=== PATIENT | male | born 1975 | race African-American/Black ===

== ENCOUNTER 2017-04-19 19:02 | Emergency (ER) | payer OTHER ==
--- NOTE | 2017-04-19 21:45 | ED Physician Documentation ---
PD HPI ANIMAL BITE - Stated complaint Stated Complaint: DOG BITE - Chief complaint Chief Complaint: Laceration - History obtained from History obtained from: Patient - History of Present Illness Location of injury(ies): LLE Details of the event: Dog, Bite, Pet animal, Well appearing, Immunization unknown, Animal can be observed, Animal control notified Timing - onset: Today Timing - duration: Hours Timing - details: Abrupt onset, Still present Improved by: Rest, Dressing Worsened by: Moving, Palpating Contributing factors: No: Immunocompromised, Asplenic Similar symptoms before: Has not had sx before Recently seen: Not recently seen - Additional information Additional information: 41-year-old male was at his home today and there is a dog that lives next door to him the dog's funeral driver had a hold of the dog's collar and the patient himself moved out of the way so that the animal could not moved potassium and the dog bit him in the hip. He has a good sized bite to the left hip and he has done local wound care to it. The dog is a pit bull and his immunization status is questionable. The dog can be observed animal control has been notified. The patient was sent to the hospital after talking to a nurse line and the identified the patient has at risk for rabies. He is here with concern about exposure to rabies and wanting rabies vaccination. Review of Systems Constitutional: denies: Fever Nose: denies: Congestion Throat: denies: Sore throat Respiratory: denies: Cough GI: denies: Vomiting Skin: reports: Bite / sting PD PAST MEDICAL HISTORY - Past Medical History Past Medical History: Yes Derm: Eczema - Past Surgical History Past Surgical History: Yes Ortho: Other - Present Medications Home Medications: Ambulatory Orders Medication Instructions Recorded Confirmed No Known Home Medications [No 04/19/17 04/19/17 Known Home Medications] - Allergies Allergies/Adverse Reactions: Allergies Allergy/AdvReac Type Severity Reaction Status Date / Time No Known Drug Allergies Allergy Verified 04/19/17 19:08 - Social History Does the pt smoke?: No Smoking Status: Never smoker Does the pt drink ETOH?: Yes Does the pt have substance abuse?: No - Immunizations Immunizations are current?: Yes Immunizations: TDAP current <10years PD ED PE NORMAL - Vitals Vital signs reviewed: Yes - General General: Alert and oriented X 3, No acute distress, Well developed/nourished - HEENT HEENT: Atraumatic, PERRL - Respiratory Respiratory: No respiratory distress - Derm Derm: Normal color, Warm and dry, No rash - Extremities Extremities: No deformity, No edema, Other (On the left hip laterally at about the level of the illiac crest is a group of abrasion/teeth key that appear clean. ) - Neuro Neuro: No motor deficit, No sensory deficit Eye Opening: Spontaneous Motor: Obeys Commands Verbal: Oriented GCS Score: 15 - Psych Psych: Normal mood, Normal affect Results - Vitals Vitals: Vital Signs - 24 hr 04/19/17 04/19/17 19:04 21:58 Temperature 36.3 C L 36.5 C Heart Rate 73 69 Respiratory 18 17 Rate Blood Pressure 130/77 142/82 H O2 Saturation 98 98 Oxygen O2 Source Room air PD MEDICAL DECISION MAKING - ED course Complexity details: considered differential, d/w patient ED course: 41-year-old male with a dog bite to the left hip from a pit bull who can be observed and who has a questionable immunization status falls into the category of observation. I shared the information with the patient on the algorithm from the CDC and we have done local wound care. Departure - Departure Disposition: 01 Home, Self Care Clinical Impression: Dog bite of extremity Condition: Stable Instructions: ED Bite Animal General Follow-Up: STEPHANIE Luque [Provider Group] Comments: According to the CDC's algorithm because this animal can be observed for 10 days post exposure prophylaxis is not indicated today. If the animal develops symptoms over the 10 days of quarantine follow-up with your primary care doctor or here for postexposure prophylaxis. Discharge Date/Time: 04/19/17 22:02
[2017-04-19 21:59] VITALS: BP 142/82
== END 2017-04-19 22:02 | disposition home or self-care (01) ==
LOC: ED 19:02
DX: S71.052A Open bite, left hip, initial encounter (principal); W54.0XXA Bitten by dog, initial encounter; Y92.007 Garden or yard of unspecified non-institutional (private) residence as the place of occurrence of the external cause
CPT/HCPCS: 99282; 99283

== ENCOUNTER 2022-05-08 11:54 | Day surgery (SDC) | payer OTHER ==
[~2022-05-08 11:54] MED LIST: CEFAZOLIN 2G/50ML 0.9% NS 2 GM/50 ML BAG IV ONE
[2022-05-08] MEDS ORDERED: LACTATED RINGERS 1,000 ML IV ONE (12:21)
[2022-05-08] MEDS ORDERED: BUPIVACAINE 0.25% PF 30 ML VIAL ONE ×2 (12:26→13:34)
[2022-05-08] MEDS ORDERED: LIDOCAINE-MPF 1% 30 ML VIAL ONE (12:27)
[2022-05-08] MEDS ORDERED: fentaNYL 100 MCG/2 ML VIAL IVP PRN (13:27)
[2022-05-08] MEDS ORDERED: NALOXONE 0.4 MG/ML VIAL IVP PRN (13:27)
[2022-05-08] MEDS ORDERED: ONDANSETRON 4 MG/2 ML VIAL IVP PRN ×2 (13:27→15:41)
[2022-05-08] MEDS ORDERED: MORPHINE 2 MG/ML CARPUJECT IVP PRN (13:27)
[2022-05-08] MEDS ORDERED: HYDROmorphone 0.5 MG/0.5 ML SYRINGE IVP PRN ×2 (13:27→15:41)
[2022-05-08] MEDS ORDERED: ATROPINE ABBOJECT 1 MG/10 ML SYRINGE IVP PRN (13:27)
--- NOTE | 2022-05-08 13:27 | ANESTHESIA ---
Pre-Anesthesia VS, & Labs - Diagnosis umbilical hernia - Procedure umbilical hernia repair with mesh Vital Signs: Temp Pulse Resp BP Pulse Ox O2 Flow Rate 36 C L 67 18 139/88 H 98 05/08/22 12:10 05/08/22 12:10 05/08/22 12:10 05/08/22 12:10 05/08/22 12:10 Height: 6 ft 4 in Weight (kg): 133 kg Body Mass Index: 35.6 BMI Classification: Obese - NPO >8 hours Home Medications and Allergies No Known Home Medications 04/19/17 Allergies/Adverse Reactions: Allergies Allergy/AdvReac Type Severity Reaction Status Date / Time No Known Drug Allergies Allergy Verified 05/08/22 12:09 Anes History & Medical History - Anesthetic History Anesthesia Complications: reports: No previous complications - Medical History Cardiovascular: reports: None Pulmonary: reports: None Gastrointestinal: reports: None Urinary: reports: None Neuro: reports: None Musculoskeletal: reports: Osteoarthritis, Chronic back pain Endocrine/Autoimmune: reports: None Skin: reports: Eczema, Psoriasis Smoking Status: Never smoker Psychosocial: reports: No issues indicated History of Cancer?: No - Surgical History Eyes Ears Nose Throat (EENT): reports: Tonsil/Adenoidectomy Orthopedic: reports: Other Exam General: Alert, Oriented x3, Cooperative, No acute distress Dental: WNL Mouth Openin Fingerbreadth Neck Mobility: Normal Mallampati classification: II Thyromental Distance: 4-6 cm Mental/Cognitive Status: Alert/Oriented X3, Normal for patient Plan Anesthesia Type: General Consent for Procedure(s) Verified and Reviewed: Yes Code Status: Attempt Resuscitation ASA classification: 2-Mild systemic disease Is this case an emergency?: No
[2022-05-08] MEDS ORDERED: PROPOFOL 200 MG/20 ML VIAL IVP ONE ×2 (13:34→15:15)
[2022-05-08] MEDS ORDERED: MIDAZOLAM 2 MG/2 ML VIAL ONE (13:34)
[2022-05-08] MEDS ORDERED: ROCURONIUM 50 MG/5 ML VIAL ONE ×2 (13:34→14:20)
[2022-05-08] MEDS ORDERED: fentaNYL 100 MCG/2 ML VIAL ONE ×2 (13:34→14:21)
--- NOTE | 2022-05-08 13:35 | HISTORY & PHYSICAL EXAMINATION ---
Chief Complaint - Chief Complaint Chief Complaint: painful umbilical hernia bulge History of Present Illness - History Obtained From Records Reviewed: yes History obtained from: pt Exam Limitations: none - History of Present Illness HPI Comment/Other: symptomatic incarcerated umbilical hernia History - Past Medical History Cardiovascular: reports: None Respiratory: reports: None Neuro: reports: None Endocrine/Autoimmune: reports: None GI: reports: None : reports: None HEENT: reports: Chronic vision loss Psych: reports: Depression, Anxiety Musculoskeletal: reports: Osteoarthritis, Chronic back pain Derm: reports: Eczema, Psoriasis MRSA Hx?: No - Past Surgical History Ortho: reports: Other HEENT: reports: Tonsil/Adenoidectomy Meds/Allgy - Home Medications Home Medications: Ambulatory Orders Medication Instructions Recorded Confirmed No Known Home Medications 04/19/17 05/08/22 - Allergies Allergies/Adverse Reactions: Allergies Allergy/AdvReac Type Severity Reaction Status Date / Time No Known Drug Allergies Allergy Verified 05/08/22 12:09 Review of Systems - Other Findings Other Findings: 10 pt ros as above otherwise unremarkable Exam - Vital Signs Reviewed Vital Signs: Yes Vital Signs: Vital Signs x48h Temp Pulse Resp BP Pulse Ox 05/08/22 12:10 36 C L 67 18 139/88 H 98 - Physical Exam General Appearance: positive: No acute distress, Alert Eyes Bilateral: positive: PERRL, EOMI ENT: positive: No signs of dehydration Neck: positive: No JVD, Trachea midline Respiratory: positive: No respiratory distress, Breath sounds nml Cardiovascular: positive: Regular rate & rhythm Abdomen: positive: Other (3 cm incarcerated hernia bulge) Neurologic/Psychiatric: positive: Oriented x3 Conclusion/Plan - Problem List (1) Incarcerated umbilical hernia Conclusion/Plan: plan open repair with mesh. parq held and consent obtained
[2022-05-08] MEDS ORDERED: LACTATED RINGERS 1,000 ML IV SCH (14:00)
[2022-05-08] MEDS ORDERED: DEXAMETHASONE 4 MG/ML VIAL ONE (14:07)
[2022-05-08] MEDS ORDERED: ONDANSETRON 4 MG/2 ML VIAL ONE ×2 (14:07→16:13)
[2022-05-08] MEDS ORDERED: BUPIVACAINE 0.25% PF 30 ML VIAL SUBQ ONE ×2 (14:21→14:49)
[2022-05-08] MEDS ORDERED: SUGAMMADEX 200 MG/2 ML VIAL IVP ONE (14:22)
[2022-05-08] MEDS ORDERED: KETOROLAC 30 MG/ML VIAL ONE (15:12)
[2022-05-08] MEDS ORDERED: LACTATED RINGERS 700 ML IV ONE (15:27)
[2022-05-08] MEDS ORDERED: HYDROcod/ACETAM 5/325 MG TABLET PO PRN (15:41)
--- NOTE | 2022-05-08 15:47 | OPERATIVE REPORT ---
Operative Report - General Procedure Date: 05/08/22 Planned Procedure: open repair incarcerated umbilical hernia Pre-Op Diagnosis: incarcerated umilical hernia Procedure Performed: open repair incarcerated umbilical hernia Post Op Diagnosis: same - Procedure Note Primary Surgeon: lincoln lopez Anesthesia Technique: General ET tube, Local Pathology: none. Estimated Blood Loss (mL): 5 Drain/Tube Type: Other (none) Indications: painful hernia bulge Findings: as above Complications: none - Other Other Information/Narrative: The patient was properly identified brought to the operating room and placed in supine position. Sequential compression devices were placed. General anesthesia was induced. The patient was prepped and draped in a sterile fashion and given preoperative antibiotics. Local anesthetic was given throughout the procedure. A supraumbilical incision was made and extended left lateral of the umbilicus. Dissection proceeded sharply. Subcutaneous tissue was mobilized away from the fascial defect by 2 cm in all directions. Umbilical skin was sharply excised away from the hernia sac or peritoneum. The peritoneum was then carefully released from the fascial defect edge with cutting current cautery. He had approximately 4 cm of incarcerated adipose tissue. The majority of the incarcerated adipose tissue was removed with clamps and 2-0 Vicryl ties. Peritoneum was closed. A preperitoneal space was developed for mesh placement. Polypropylene mesh was cut to size approximately 2 x 3 inches and placed preperitoneal. The mesh was secured with 12 interrupted 0 Ethibond sutures. The mesh lay in good position without tension. Subcutaneous tissue was reapproximated with interrupted 2-0 Vicryl suture. Umbilical skin was tacked back down to fascia with interrupted 2-0 Vicryl suture. Buried interrupted subdermal 3-0 Vicryl sutures were then placed. Skin was closed with a running 4-0 Monocryl subcuticular suture. Dressing was applied. Patient tolerated the procedure the procedure well was awakened and brought to recovery in good condition.
--- NOTE | 2022-05-08 15:52 | ANESTHESIA POST OP EVALUATION ---
Anesthesia Post Eval - Post Anesthesia Eval Vitals: Last Vital Signs Temp 36.6 C 05/08/22 15:27 Pulse 80 05/08/22 15:46 Resp 15 05/08/22 15:46 BP 140/93 H 05/08/22 15:46 Pulse Ox 95 05/08/22 15:46 O2 Flow Rate CV Function Including HR & BP: Stable Pain Control: Satisfactory Nausea & Vomiting: Negative Mental Status: Baseline Respiratory Status: Airway Patent Hydration Status: Satisfactory Anesthesia Complications: None
[2022-05-08] MEDS: HYDROmorphone 1 MG/ML CARPUJECT ONE ×3 (15:59→16:03)
[2022-05-08] MEDS ORDERED: HYDROmorphone 1 MG/ML CARPUJECT ONE (16:00)
[2022-05-08] MEDS ORDERED: HYDROcod/ACETAM 5/325 MG TABLET ONE (16:37)
[2022-05-08 18:57] VITALS: BP 138/87
== END 2022-05-08 19:00 | disposition home or self-care (01) ==
LOC: SDS 11:54 → MS2 17:06 → SDS 19:00
PROVIDERS: ATTEND Surgery
DX: K42.0 Umbilical hernia with obstruction, without gangrene (principal); E66.9 Obesity, unspecified; Z68.35 Body mass index [BMI] 35.0-35.9, adult
CPT/HCPCS: 49594; C1781; J0690; J1170; J7120